=== PATIENT | female | born 1960 | race Caucasian/White ===

== ENCOUNTER → 2024-10-08 15:50 | Outpatient (REF) | payer OTHER, SELFPAY | LOC: WDC 15:50 | PROVIDERS: ATTENDING PHYSICIAN Obstetrics & Gynecology; FAMILY PHYSICIAN Family Medicine | DX: Z12.31 Encounter for screening mammogram for malignant neoplasm of breast (principal) | CPT/HCPCS: 77063; 77067 ==

== ENCOUNTER → 2024-11-19 06:52 | Outpatient (REF) | payer OTHER, SELFPAY | LOC: PAVMRI 06:52 | PROVIDERS: ATTENDING PHYSICIAN Physical Medicine & Rehabilitation Sports Medicine; FAMILY PHYSICIAN Family Medicine | DX: M16.11 Unilateral primary osteoarthritis, right hip (principal) | CPT/HCPCS: 73721 ==

== ENCOUNTER 2025-02-19 15:24 | Observation (INO) | payer OTHER, SELFPAY ==
[2025-02-19] VITALS (16 sets, daily range): BP systolic 78–113; BP diastolic 38–65; PULSE 82–101; BMI 21.3
[2025-02-19 11:09] LABS: Glucose - Point of Care 105 mg/dl (70-99)
[2025-02-19] MEDS: ULTRAM 50 MG PO ×3 (11:21→23:50)
[2025-02-19 11:30] LABS: Hematocrit 26.3 % (37.0-47.0); Hemoglobin 9.1 g/dL (12.0-16.0); Mean Corp Hgb Conc. 34.6 g/dL (33.0-37.0); Mean Corpuscular Hgb 30.6 pg (27.0-31.0); Mean Corpuscular Volume 88.6 fL (81.0-99.0); Mean Platelet Volume 10.5 fL (7.4-10.4); Platelet Count 147 10^3/uL (130-400); Red Blood Cell Count 2.97 10^6/uL (4.20-5.40); Red Cell Dist. Width 12.1 % (11.5-14.5); White Blood Cell Count 7.7 10^3/uL (4.8-10.8)
[2025-02-19 11:47] LABS: ALT (SGPT) 25 U/L (0-35); AST (SGOT) 45 U/L (14-36); Albumin 3.8 g/dl (3.5-5.0); Alkaline Phosphatase 33 U/L (38-126); Blood Urea Nitrogen 15 mg/dl (7-17); Calcium 8.5 mg/dl (8.4-10.2); Carbon Dioxide 23 mmol/L (22-30); Chloride 111 mmol/L (98-107); Estimated Creatinine Clearance 86 ml/min; Glucose 103 mg/dl (70-99); Potassium 3.7 mmol/L (3.5-5.1); Sodium 138 mmol/L (135-145); Total Bilirubin 0.9 mg/dl (0.2-1.3); Total Protein 5.9 g/dl (6.3-8.2); eGFR > 60.00
[2025-02-19] MEDS: NSS 1000 IV ×3 (13:00→19:58)
--- NOTE | 2025-02-19 14:21 | ED.GENMED ---
History of Present Illness
General
Chief Complaint: Fainting/Passed Out
Time Seen by Provider: 02/19/25 10:45
History of Present Illness
History of Present Illness:
64-year-old female presents the emergency department for evaluation of a syncopal event that occurred this morning, she notes that she had a hip replacement done at [facility] yesterday by Dr. Alexandra, reportedly anesthesia had noted she was
hypotensive during and after the procedure persistently. She received IV fluid boluses multiple times and states that her blood pressure remained low however was discharged and advised to increase oral fluids. She notes that after taking oxycodone
for pain she had increased nausea and dizziness. While attempting to get to the restroom today she had a syncopal event. When being assisted up after her syncope she had another event witnessed by the . She is not on any antihypertensives
Review of Systems
Review of Systems
Allergies reviewed?: Yes
All Other Systems: ROS reviewed and negative except as documented in HPI and ROS
Phy Exam
Physical Exam
Physical Exam:
GEN: Well appearing, NAD, WDWN
HEENT: Oral mucosa moist, no scleral icterus
Cardiac: Regular rate and rhythm, no murmurs
Lung: No respiratory distress, no tachypnea
MSK: No gross deformity or injuries
Skin: Good color, no pallor or jaundice, no rashes
Neuro: AO x3, moves all extremities freely
Psych: Calm, cooperative
Course
Orders/Labs/Results
Orders:
Orders
02/19/25 10:49
EKG [Electrocardiogram (*1)] Stat
Reason for Study: Fatigue / Weakness
EKG- Treatment ONCE
02/19/25 11:07
Complete Blood Count/No Diff Urgent
Comprehensive Metabolic Panel Urgent
Cortisol, Random Urgent
Comment: ADD ON TO LABS
Tramadol HCl [Ultram] 50 mg PO NOW STA
02/19/25 12:47
Add On- LAB Urgent
Tests Added?: random cortisol
0.9% Sodium Chloride 1000 ml [Nss] 1,000 ml IV BOLUS
02/19/25 14:45
0.9% Sodium Chloride 1000 ml [Nss] 1,000 ml IV 1,000 mls/hr
Abnormal Lab Results
02/19/25
11:07
RBC 2.97 L 10^6/uL
(4.20-5.40)
Hgb 9.1 L g/dL
(12.0-16.0)
Hct 26.3 L %
(37.0-47.0)
MPV 10.5 H fL
(7.4-10.4)
Chloride 111 H mmol/L
(98-107)
Creatinine 0.5 L mg/dL
(0.6-1.0)
Glucose 103 H mg/dl
(70-99)
AST 45 H U/L
(14-36)
Alkaline Phosphatase 33 L U/L
(38-126)
Total Protein 5.9 L g/dl
(6.3-8.2)
POC Glucose 105 H mg/dl
(70-99)
02/19/25 11:07
02/19/25 11:07
Vital Signs
Initial and Last Documented VS:
Initial Vital Signs
BP
78/44
02/19/25 10:48
Last Documented Vital Signs
Temp Pulse Resp BP Pulse Ox
98.0 F 78 15 86/48 100
02/19/25 10:49 02/19/25 14:00 02/19/25 14:00 02/19/25 14:00 02/19/25 14:00
MDM/Problems Addressed
MDM/Problems Addressed:
Patient lauren persistently hypotensive. This is likely multifactorial in the setting of baseline low normal blood pressure coupled with opiate pain medication use, recent anesthesia, and likely intramuscular bleeding from operative procedure.
Given intractable hypotension she is not a safe discharge at this will place in observation for further management
*Critical Care Note
Total Time (30-74mins, 75-104mins- exclusive of procedures): Not Applicable
ED Attending Note
-
Portions of this chart may have been created with voice recognition software.� Occasional wrong word or��sound alike� substitutions may have occurred due to the inherent limitations of voice recognition software.
Discharge Plan
Departure
Patient Disposition: Admit
Date of Disposition: 02/19/25
Time of Disposition: 14:40
Admit to: Med/Surg
Presentation/result/management discussed w/ accepting MD/DO: Hospitalist
Discharge Problem:
Acute hypotension, Syncope
Prescriptions:
No Action
celecoxib 200 MG capsule
200 mg PO DAILY
Referrals:
Kana Lovelace DO [Family Provider, Family Practice]
Interventions
Interventions:
*Risk Screen - Suicide Last Done: 02/19/25 14:19
*General Assessment Last Done: 02/19/25 14:19
*Neglect/Abuse Screening Last Done: 02/19/25 14:19
*ED COVID-19 Vaccine History Last Done: 02/19/25 14:19
ED- Cardiac Assessment Last Done: 02/19/25 14:21
ED- Neurological Assessment Last Done: 02/19/25 14:21
Discharge Date and Time
Print Language: SURINAMESE
--- NOTE | 2025-02-19 14:44 | HPS.HSE ---
Family Physician
-
Family Physician: Kana Lovelace
Chief Complaint
-
Syncope x 2 status post right THEODORE
History of Present Illness
63-year-old female status post right THEODORE at [facility] yesterday 02/18/2025 by she presents to the ER today due to a syncopal event that occurred this morning while at home. She reports while attempting to get to the restroom today
she felt nauseous and dizzy and knew she was going to pass out so she lowered herself to the floor where she passed out in the bathroom. Her witnessed a second syncope while she was sitting on the toilet. After that he helped her walk to
the bed. He then called her surgeon who recommended to go to the local emergency room for evaluation .She is noted to be hypotensive in the ER with blood pressure 86/48. She denies headache, head injury, neck pain, blurred vision, increased hip
pain or injury, fever, chills, chest pain, palpitations, cough, shortness of breath, abdominal pain, vomiting, diarrhea, urinary symptoms. She has past medical history of right THEODORE, osteoarthritis, hypotension, lumbar discectomy.
Medical History
Past Medical History
Past Medical History: Reports Other
Additional Past Medical History:
right THEODORE, hypotension, lumbar discectomy, osteoarthritis
Past Surgical History: Reports Other
Additional Past Surgical History:
Tubal ligation
Lumbar discectomy 10/02/2007
Right THEODORE 02/18/2025 [facility] Dr. Alexandra
Left THEODORE 10 years ago
Social History
Tobacco: Non-smoker
Alcohol: Occasional (2 drinks on the weekends)
Personal:
Living: With Family ()
Employment: Retired
Family History
Family History: Other (Mother age 83 CHF, father in his 90s dementia)
Allergies / Home Medications
Allergies reflects when Allergies were last updated in [facility].
Home Medications with original date entered in [facility]
Allergy/Medication List:
Allergies
Allergy/AdvReac Type Severity Reaction Status Date / Time
cefdinir Allergy Severe Gi Unverified 10/10/18 13:47
Symptoms,
diarrhea
Home Medications
oxycodone 5 mg PO Q4HPRN PRN severe pain 02/19/25
tramadol 50 mg PO Q6H PRN mod pain 02/19/25
Review of Systems
-
History Source: Patient
A 12 point ROS was completed and negative except as noted: Yes
Constitutional: Denies Fever, Fatigue or Chills
EENT: Denies Sore Throat or Runny Nose
Respiratory: Denies Cough or Trouble Breathing
Cardiac: Denies Chest Pain or Diaphoresis
Abdomen/GI: Reports Nausea; Denies Abdominal Pain, Vomiting, Diarrhea, Constipated, Bloody Stools or Black Stools
: Denies Dysuria, Frequency, Flank Pain, Incontinence, Difficulty Voiding, Urgency or Bleeding
Musculoskeletal: Reports Joint Pain (Right hip status post THEODORE) and Other (Dressing intact to right hip incision some slight surrounding ecchymosis minimal swelling); Denies Muscle Pain or Edema
Skin: Denies Itching or Rash
Neurological: Reports Dizzy; Denies Headache, Weakness or Numbness
Endocrine: Reports No Symptoms
Hematologic/Lymphatic: Reports No Symptoms
Psych: Reports Calm
Physical Exam
Vital Signs
Vital Signs
Temp Pulse Resp BP Pulse Ox
98.0 F 78 15 86/48 100
02/19/25 10:49 02/19/25 14:00 02/19/25 14:00 02/19/25 14:00 02/19/25 14:00
Physical Exam
General: Comfortable, Conversant and Pain; No Fever, Chills or Sweats
HEENT: NormoCephalic, Anicteric, Moist mucous membranes, Atraumatic, PERRLA, Latty Conjunctivae, No Ptosis and Neck Nontender
Respiratory: Clear; No Wheezes, Rales or Rhonchi
Cardiac: S1/S2 and Regular Rhythm; No Murmur, Rub, Gallop or Peripheral Edema
Breast: Deferred by me
GI: Soft, Non Tender, Non Distended, Normal Bowel Sounds and No Hepatosplenomegaly
Rectal: Deferred by Provider
Genito-urinary: Deferred by me
Musculoskeletal: No Clubbing, No Cyanosis, No Edema and Other (Dressing intact to right hip incision some slight surrounding ecchymosis minimal swelling)
Skin: Warm and Dry; No Rash or Jaundice
Neuro: AO x 3, No Motor Deficits, Nonfocal/grossly intact, Cranial Nerves Intact and No Sensory Deficits; No Slurred Speech, Facial Droop, Tremors or Sedated
Psych: Calm
Laboratory Results
-
02/19/25 11:07
02/19/25 11:07
Laboratory Results
Total Bilirubin 0.9 mg/dl (0.2-1.3) 02/19/25 11:07
AST 45 U/L (14-36) H 02/19/25 11:07
ALT 25 U/L (0-35) 02/19/25 11:07
Alkaline Phosphatase 33 U/L (38-126) L 02/19/25 11:07
Data Reviewed
-
Lab Data: Labs Reviewed by me
Impression/Plan
-
Impression/plan:
Observation telemetry
#Syncope secondary to orthostatic hypotension/volume depletion concern possible DVT/pe
#Hx hypotension(reports baseline SBP 100)
- BP 86/48
- 2 L IV NSS bolus
- Continue IV NSS 100 cc an hour
- Monitor orthostatics
-Check D-dimer
-Check 2D echo
-Check troponin
- PT consult
EKG: NSR 70 bpm, QTc 432 MS NEW nonspecific T wave abnormality anterior leads new since September 2018
#S/P Right THEODORE 02/18/2025 [facility]-Dr. Alexandra
#Hx Osteoarthritis
- Continue Tylenol as needed
-Continue tramadol 50 mg every 6 hours scheduled
- Continue oxycodone 2.5 mg severe pain as needed
- Continue Zofran as needed
- PT consult
#Blood loss anemia due to recent right THEODORE
Hgb 9.1, MCV 88.6
- Will follow CBC no active bleeding
DVT prophylaxis
Subcu heparin pending D-dimer result
Full code
--- NOTE | 2025-02-19 14:44 | W.PN.UPDATE ---
Update Note
Progress Note Update
I have independently examined the patient and agree with H&P written on the same date. In addition:
64yo F with THEODORE 1 day ago in [place] with hypotension and syncopal episode
-Syncope with hypotension
suspect 2/2 recent anesthesia
Telemetry
serial trops
check ddimer, CTA chest and LE US if elevated
Echo
IVF
We have spent at least 79min admitting the patient
[2025-02-19 15:11] LABS: Cortisol, Random 26.4 ug/dl
--- NOTE | 2025-02-19 15:28 | EDCM ---
Patient seen bedside.
Lives with spouse in a 2 story home.
S/p right THR yesterday.
Passed out x 2 at home.
Per patient BP low due to pain medications.
Was able to go up steps to bedroom last pm.
Per patient no VN or out patient therapy ordered post op.
[place] prior to surgery, drives.
PCP: [place]
Pharmacy: [facility]
Plan: home with spouse.
[2025-02-19] MEDS: TYLENOL 650 MG PO ×2 (16:06→20:03)
[2025-02-19 16:15] LABS: D-Dimer 0.81 ug/mlFEU (0.00-0.50)
[2025-02-19 16:25] LABS: Troponin I < 0.012 ng/ml
[2025-02-19] MEDS: NSS 500 IV (17:49)
[2025-02-19] MEDS: HEPARIN 5000 UNITS SC (20:13)
--- NOTE | 2025-02-19 20:14 | W.PN.UPDATE ---
Update Note
Progress Note Update
Review of chart at 8 PM notes a temperature of 100.6 F at 1730 5 PM. I was not informed by dayshift nursing of the temperature. I spoke with her third shift lieutenant nurse Sherri who repeated a temperature of 98 and states she is giving her Tylenol now has
not received any antipyretics prior.
Problem addendum
#Fever postop right THEODORE
100.6 F self resolved 98.4
- CT chest negative for pneumonia
- Will check UA reflex culture, blood cultures x 2
- Continue to monitor temperature
- Tylenol as needed
[2025-02-19] MEDS: SENOKOT-S PO (20:15)
[2025-02-19 21:29] LABS: Troponin I < 0.012 ng/ml
[2025-02-19 22:20] LABS: Urine Albumin Negative (Neg - Trace); Urine Bilirubin Negative (Negative); Urine Character Clear (Clear); Urine Color Yellow; Urine Glucose Negative (Negative); Urine Ketone Negative (Negative); Urine Leukocyte Negative (Negative); Urine Nitrite Negative (Negative); Urine Occult Blood Negative (Negative); Urine Urobilinogen Negative (Neg - 1+)
[2025-02-20] VITALS (11 sets, daily range): BP systolic 84–116; BP diastolic 45–63; PULSE 74–95
[2025-02-20] MEDS: ULTRAM 50 MG PO ×2 (05:44→19:58)
[2025-02-20] MEDS: NSS 1000 IV ×2 (06:14→20:46)
[2025-02-20 06:54] LABS: % Basophils 0.3 % (0-2); % Immature Granulocytes 0.5 % (0-0.5); % Neutrophils 71.2 % (42.2-75.2); Absolute Monocytes 0.7 10^3/uL (0.1-0.6); Absolute Neutrophils 4.2 10^3/uL (1.4-6.5); Hematocrit 20.9 % (37.0-47.0); Hemoglobin 7.4 g/dL (12.0-16.0); Mean Corp Hgb Conc. 35.4 g/dL (33.0-37.0); Mean Corpuscular Hgb 31.6 pg (27.0-31.0); Mean Corpuscular Volume 89.3 fL (81.0-99.0); Mean Platelet Volume 10.6 fL (7.4-10.4); Nucleated Red Blood Cells % 0 %; Platelet Count 118 10^3/uL (130-400); Red Blood Cell Count 2.34 10^6/uL (4.20-5.40); Red Cell Dist. Width 12.4 % (11.5-14.5); White Blood Cell Count 5.9 10^3/uL (4.8-10.8)
[2025-02-20 07:04] LABS: ALT (SGPT) 19 U/L (0-35); AST (SGOT) 32 U/L (14-36); Albumin 2.9 g/dl (3.5-5.0); Alkaline Phosphatase 35 U/L (38-126); Blood Urea Nitrogen 4 mg/dl (7-17); Calcium 8.2 mg/dl (8.4-10.2); Carbon Dioxide 26 mmol/L (22-30); Chloride 110 mmol/L (98-107); Estimated Creatinine Clearance 86 ml/min; Glucose 106 mg/dl (70-99); Potassium 3.2 mmol/L (3.5-5.1); Sodium 139 mmol/L (135-145); Total Bilirubin 0.6 mg/dl (0.2-1.3); Total Protein 4.9 g/dl (6.3-8.2); eGFR > 60.00
[2025-02-20] MEDS: SENOKOT-S 1 TABLET PO ×2 (08:21→19:57)
[2025-02-20] MEDS: HEPARIN SC ×2 (08:22→08:58)
[2025-02-20] MEDS: TYLENOL 650 MG PO (08:25)
[2025-02-20 09:18] LABS: Hematocrit 22.5 % (37.0-47.0); Hemoglobin 7.6 g/dL (12.0-16.0)
[2025-02-20 09:28] LABS: Total Iron Binding Capacity 221 ug/dl (265-497)
[2025-02-20 09:37] LABS: Iron < 20 ug/dl (37-170)
[2025-02-20] MEDS: ProAmatine 5 MG PO (09:42)
[2025-02-20] MEDS: KCL 40 MEQ PO (09:43)
--- NOTE | 2025-02-20 10:14 | CM ---
CM following re: discharge planning.
Reviewed pt's chart, met with pt.
Pt is a 64 year old female, admitted with OBS status and primary dx of THEODORE 1 day ago in [place] with hypotension and syncopal episode. OBS status explained to the pt, pt expressed her understanding, stated she wants her to go over it,
politely declined to sign, OBS letter placed on chart, pt has a copy.
Per CM note, pt lives with spouse in a 2SH and pt was independent in all areas [employer].
D/C plan: home with anticipated no needs. to transport at discharge.
CM will follow with discharge plan updates as hospitalization progresses
--- NOTE | 2025-02-20 11:33 | W.PN.HOSP.TC ---
Addendum entered and electronically signed by Alpesh Hernandez MD 02/20/25 14:01:
temp noted overnight, could be a false temp as patient fever resolved without any intervention. Currently denies any fever/chills.
Original Note:
Today's Communication/Plan
-
Monitor vital signs
see plan
Transfuse 1 unit PRBC
Pain control
Laxatives
PT evaluation
Assessment / Plan
Assessment / Plan
General: Comfortable, Conversant and Pain; No Fever, Chills or Sweats
HEENT: NormoCephalic, Anicteric, Moist mucous membranes
Respiratory: Clear; No Wheezes, Rales or Rhonchi
Cardiac: S1/S2 and Regular Rhythm; No Murmur
GI: Soft, Non Tender, Non Distended, Normal Bowel Sounds
Musculoskeletal: No Clubbing, No Cyanosis, No Edema and Other (Dressing intact to right hip incision some slight surrounding ecchymosis minimal swelling)
Neuro: AO x 3, No Motor Deficits, Nonfocal/grossly intact, Cranial Nerves Intact
Psych: Calm
Syncope secondary to orthostatic hypotension/volume depletion and acute with possible acute on chronic anemia secondary to acute blood loss from surgery
#Hx hypotension(reports baseline SBP 100)
Continue with fluids
Hemoglobin 7.6, unknown baseline however per patient no problem with anemia. Transfuse 1 unit PRBC. Expected possible acute blood loss from recent surgery.
- Monitor orthostatics
CT chest without PE, venous Doppler negative for DVT
Troponin negative
- PT consult
No active bleeding
#S/P Right THEODORE 02/18/2025 [facility]-Dr. Alexandra
#Hx Osteoarthritis
Start Tylenol scheduled, continue with tramadol as needed
- Continue Zofran as needed
- PT consult
Hypokalemia
Replete
Constipation
Start laxatives
DVT prophylaxis
Subcu heparin
Full code
Anticipated Discharge: Today
Subjective/Interval History
-
Date of Service: February 20, 2025
Has some pain
Objective Data
-
Labs:
Laboratory Results
02/20/25 02/20/25
06:16 09:08
WBC 5.9
Hgb 7.4 L 7.6 L
Hct 20.9 L* 22.5 L
Plt Count 118 L
Sodium 139
Potassium 3.2 L
Chloride 110 H
Carbon Dioxide 26
BUN 4 L
Creatinine 0.5 L
Glucose 106 H
Calcium 8.2 L
Total Bilirubin 0.6
AST 32
ALT 19
Alkaline Phosphatase 35 L
Vital Signs:
Vital Signs
Temp Pulse Resp BP Pulse Ox
99.0 F 67 17 99/55 100
02/20/25 11:12 02/20/25 11:12 02/20/25 11:12 02/20/25 11:12 02/20/25 11:12
I&O
02/19/25 02/20/25 02/21/25
06:59 06:59 06:59
Intake Total 1215 / 1215 680 / 680
Output Total 500 / 500
Balance 715 / 715 680 / 680
[2025-02-20 12:08] LABS: Ferritin 97.8 ng/ml (11.1-264.0)
[2025-02-20] MEDS: TYLENOL 1000 MG PO ×2 (12:12→19:56)
[2025-02-20] MEDS: COLACE 100 MG PO ×2 (12:12→19:57)
[2025-02-20 12:39] LABS: Folate 10.1 ng/ml (2.76-20); Vitamin B12 363 pg/ml (239-931)
[2025-02-20] MEDS: VITAMIN B-12 1000 MCG PO (15:49)
[2025-02-20] MEDS: FERRLECIT 110 MG IV (17:07)
[2025-02-20] MEDS: HEPARIN 5000 UNITS SC (19:57)
[2025-02-21 03:00] VITALS: BP 94/48
[2025-02-21] MEDS: TYLENOL 1000 MG PO (04:55)
[2025-02-21] MEDS: NSS 1000 IV (04:56)
[2025-02-21 06:28] LABS: % Basophils 0.5 % (0-2); % Eosinophils 2.2 % (0-6); % Immature Granulocytes 0.5 % (0-0.5); % Lymphocytes 25.3 % (20.5-51.1); % Monocytes 8.6 % (1.7-9.3); % Neutrophils 62.9 % (42.2-75.2); Absolute Eosinophils 0.1 10^3/uL (0-0.7); Absolute Lymphocytes 1.6 10^3/uL (1.2-3.4); Absolute Monocytes 0.6 10^3/uL (0.1-0.6); Mean Corp Hgb Conc. 34.6 g/dL (33.0-37.0); Mean Corpuscular Hgb 30.6 pg (27.0-31.0); Mean Corpuscular Volume 88.4 fL (81.0-99.0); Mean Platelet Volume 10.8 fL (7.4-10.4); Nucleated Red Blood Cells % 0 %; Platelet Count 139 10^3/uL (130-400); Red Blood Cell Count 2.94 10^6/uL (4.20-5.40); Red Cell Dist. Width 13.4 % (11.5-14.5); White Blood Cell Count 6.4 10^3/uL (4.8-10.8)
[2025-02-21 06:54] LABS: ALT (SGPT) 18 U/L (0-35); AST (SGOT) 31 U/L (14-36); Albumin 2.7 g/dl (3.5-5.0); Alkaline Phosphatase 38 U/L (38-126); Blood Urea Nitrogen 6 mg/dl (7-17); Calcium 7.9 mg/dl (8.4-10.2); Carbon Dioxide 24 mmol/L (22-30); Chloride 112 mmol/L (98-107); Estimated Creatinine Clearance 86 ml/min; Glucose 92 mg/dl (70-99); Potassium 3.5 mmol/L (3.5-5.1); Sodium 139 mmol/L (135-145); Total Bilirubin 0.8 mg/dl (0.2-1.3); Total Protein 4.8 g/dl (6.3-8.2); eGFR > 60.00
[2025-02-21 07:00] VITALS: BP 120/61
[2025-02-21] MEDS: VITAMIN B-12 1000 MCG PO (08:42)
[2025-02-21] MEDS: MIRALAX 17 GRAMS PO (08:42)
[2025-02-21] MEDS: HEPARIN 5000 UNITS SC (08:42)
[2025-02-21] MEDS: SENOKOT-S 1 TABLET PO (08:42)
[2025-02-21] MEDS: COLACE 100 MG PO (08:42)
[2025-02-21] MEDS: TYLENOL 500 MG PO (09:23)
[2025-02-21 11:05] VITALS: BP 105/65
--- NOTE | 2025-02-21 11:11 | W.PN.HOSP.TC ---
Today's Communication/Plan
-
Monitor vitals
See plan
Check CBC early next week with primary care provider
P.o. iron and vitamin B12 on discharge
Pain control
Discharge today
Time of discharge 38 minutes
Assessment / Plan
Assessment / Plan
General: Comfortable, Conversant and Pain; No Fever, Chills or Sweats
HEENT: NormoCephalic, Anicteric, Moist mucous membranes
Respiratory: Clear; No Wheezes, Rales or Rhonchi
Cardiac: S1/S2 and Regular Rhythm; No Murmur
GI: Soft, Non Tender, Non Distended, Normal Bowel Sounds
Musculoskeletal: No Clubbing, No Cyanosis, No Edema and Other (Dressing intact to right hip incision some slight surrounding ecchymosis minimal swelling)
Neuro: AO x 3, No Motor Deficits, Nonfocal/grossly intact, Cranial Nerves Intact
Psych: Calm
Syncope secondary to orthostatic hypotension/volume depletion and acute with possible acute on chronic anemia secondary to acute blood loss from surgery
#Hx hypotension(reports baseline SBP 100)
Continue with fluids
Hemoglobin 7.6, unknown baseline however per patient no problem with anemia. Transfuse 1 unit PRBC. Expected possible acute blood loss from recent surgery. Hemoglobin now 9. Patient feeling better. Blood pressure improved
- Monitor orthostatics
CT chest without PE, venous Doppler negative for DVT
Troponin negative
- PT evaluated
No active bleeding. Advised patient to follow-up with PCP for repeat hemoglobin early next week.
Continue with IV iron, p.o. iron on discharge. Continue with vitamin B12
Denies any blood in stool, no abdominal pain
Vitamin B12 deficiency
Replete
#S/P Right THEODORE 02/18/2025 [facility]-Dr. Alexandra
#Hx Osteoarthritis
Start Tylenol scheduled, continue with tramadol as needed
- Continue Zofran as needed
Hypokalemia
Improved
Constipation
Started laxatives
DVT prophylaxis
Subcu heparin
Full code
Anticipated Discharge: Today
Subjective/Interval History
-
Date of Service: February 21, 2025
Denies pain
Objective Data
-
Labs:
Laboratory Results
02/21/25
05:43
WBC 6.4
Hgb 9.0 L
Hct 26.0 L
Plt Count 139
Sodium 139
Potassium 3.5
Chloride 112 H
Carbon Dioxide 24
BUN 6 L
Creatinine 0.5 L
Glucose 92
Calcium 7.9 L
Total Bilirubin 0.8
AST 31
ALT 18
Alkaline Phosphatase 38
Vital Signs:
Vital Signs
Temp Pulse Resp BP Pulse Ox
98.7 F 78 16 120/61 97
02/21/25 07:00 02/21/25 07:00 02/21/25 07:00 02/21/25 07:00 02/21/25 07:00
I&O
02/20/25 02/21/25 02/22/25
06:59 06:59 06:59
Intake Total 1215 / 1215 1660 / 1660
Output Total 500 / 500
Balance 715 / 715 1660 / 1660
--- NOTE | 2025-02-21 11:34 | W.DCSUMMARY ---
Discharge Summary
Discharge Data
Date of Admission: 02/19/25
Date of Discharge: 02/21/25
-
Pending Results: No
Hospital Course
64-year-old female with past medical history of recent right THEODORE came to the hospital after syncopal episode which was likely thought was secondary to orthostatic hypotension/volume depletion and acute blood loss anemia from recent surgery. Her
hemoglobin dropped down to 7.6 and since she was symptomatic she was given 1 unit of blood transfusion. After blood transfusion her hemoglobin improved to 9. It also improved her blood pressure. CT chest was done which was negative for pulmonary
embolism. There was no active bleeding and patient denied abdominal pain throughout hospitalization. On labs patient was deficient in iron and was started on IV iron which was later transitioned to p.o. iron on discharge. She was also low with
vitamin B12 which was repleted. She was also constipated which over time continue to improve with laxatives. Once her symptoms were improving along with her blood pressure, she was then discharged home with instructions to follow-up with all her
physicians outpatient. Patient was also instructed to get repeat CBC with primary care provider early next week.
Discharge Plan
-
Patient Disposition: Home with Home Care
Discharge Diagnosis/Procedures: Syncope secondary to orthostatic hypotension/volume depletion and acute blood loss anemia from recent hip surgery
Recent right THEODORE
Constipation
Diet: As tolerated
Activity: As tolerated
Driving Restrictions: Not until seen by your Dr
Bathing Restrictions: None
Blood Work: CBC early next week with primary care provider
Referrals:
Kana Lovelace DO [Family Provider, Family Practice] - in less than 1 week
Prescriptions:
New
polyethylene glycol 3350 17 gram Powder In Packet
17 g PO DAILY PRN (Reason: Constipation) Qty: 0 0RF
cyanocobalamin (vitamin B-12) [Vitamin B-12] 1,000 mcg Tablet
1,000 mcg PO DAILY Qty: 30 0RF
tramadol 50 mg Tablet
50 mg PO Q6 PRN (Reason: Moderate to severe pain) Qty: 20 0RF
acetaminophen [Tylenol Extra Strength] 500 mg Tablet
1,000 mg PO Q8H Qty: 0 0RF
ferrous sulfate 325 mg (65 mg iron) tablet
325 mg PO DAILY Qty: 30 0RF
sennosides-docusate sodium 8.6-50 mg Tablet
1 tab PO BID Qty: 0 0RF
pantoprazole [Protonix] 40 mg tablet,delayed release (DR/EC)
40 mg PO DAILY Qty: 30 0RF
Continued
aspirin 81 mg Tablet,Delayed Release (Dr/Ec)
81 mg PO BID
Visbiome 112.5 billion cell Capsule
1 cap PO DAILY
Discontinued
tramadol 50 mg Tablet
50 mg PO BIDPRN PRN (Reason: moderate pains)
oxycodone 5 mg Tablet
5 mg PO Q4HPRN PRN (Reason: svere pain)
acetaminophen [Tylenol Extra Strength] 500 mg Tablet
500 mg PO Q6H
Discharge Orders:
Discharge Patient (As Directed); Ordered 02/21/25
Ordered By: Alpesh Hernandez
Discharge Date and Time
Discharge Date/Time: 02/21/25 12:17
Print Language: NORWEGIAN
--- NOTE | 2025-02-21 11:51 | CM ---
CM following re: discharge planning.
Reviewed pt's chart, met with pt.
Discharge order noted. Pt is aware, expressed her agreement and she stated her is somewhere here and he will transport home.
PT and OT evaluations noted - home PT/OT or outpatient PT/OT recommended. Pt is aware and politely declined offers stating she has all therapy recommendations and she will do it with her .
D/C plan: home no needs. to transport.
[2025-02-21] MEDS: ULTRAM 50 MG PO (11:54)
[2025-02-22 04:21] LABS: Transferrin 152 mg/dL (200-360)
== END 2025-02-21 12:17 | disposition home or self-care (01) ==
LOC: 2 SOUTH 15:24
PROVIDERS: Clinical Nurse Specialist Family Health; Physician Assistant; ADMITTING PHYSICIAN Internal Medicine; ATTENDING PHYSICIAN Internal Medicine; EMERGENCY PHYSICIAN Emergency Medicine; FAMILY PHYSICIAN Family Medicine
DX: I95.1 Orthostatic hypotension (principal); R50.9 Fever, unspecified; R11.0 Nausea; R42 Dizziness and giddiness; R10.9 Unspecified abdominal pain; R53.1 Weakness; D62 Acute posthemorrhagic anemia; R94.31 Abnormal electrocardiogram [ECG] [EKG]; E86.9 Volume depletion, unspecified; E87.6 Hypokalemia; K59.00 Constipation, unspecified; E53.8 Deficiency of other specified B group vitamins; R53.83 Other fatigue; M19.90 Unspecified osteoarthritis, unspecified site; Z96.643 Presence of artificial hip joint, bilateral; Z98.51 Tubal ligation status; Z82.49 Family history of ischemic heart disease and other diseases of the circulatory system; Z88.1 Allergy status to other antibiotic agents
CPT/HCPCS: 36430; 71275; 80053; 81003; 82533; 82607; 82728; 82746; 82962; 83540; 83550; 84466; 84484; 85014; 85018; 85025; 85027; 85379; 86850; 86900; 86901; 86920; 87040; 93005; 93306; 93970; 96360; 97162; 97530; 99285; G0378; J2916; P9016; Q9967

== ENCOUNTER → 2025-05-25 09:54 | Outpatient (REF) | payer OTHER, SELFPAY | LOC: PAVMRI 09:54 | PROVIDERS: ATTENDING PHYSICIAN Family Medicine | DX: M25.511 Pain in right shoulder (principal) | CPT/HCPCS: 73221 ==

== ENCOUNTER → 2025-06-06 20:22 | Outpatient (REF) | payer OTHER, SELFPAY | LOC: MRI 20:22 | PROVIDERS: ATTENDING PHYSICIAN Family Medicine | DX: M25.521 Pain in right elbow (principal) | CPT/HCPCS: 73221 ==